=== PATIENT | female | born 1950 | race Caucasian/White ===

== ENCOUNTER 2017-01-14 17:36 | Emergency (ER) | payer MEDICARE, MEDICAID ==
[~2017-01-14] VITALS: Ht 167.6 cm; Wt 65.0 kg
[~2017-01-14 17:36] MED LIST: ASPI325T4 PO; ATOR80TA75 PO; CLON0.5T PO; DIVA500T2 PO; ESTR1TAB15 PO; GABA300C10 PO; HYDR25TA11 PO; LEVE500T53 PO; LISI-167 PO; LOPE2CAP PO; LORA-445 PO; ONDA4TAB10 PO; PARO40TA45 PO; TRAZ150T68 PO
[2017-01-14] MEDS ORDERED: HYDROmorphone 1 MG/ML, 1ML IVPush PRN (18:00)
[2017-01-14] MEDS ORDERED: ONDANSETRON 2MG/ML, 2ML IVPush ONE (18:00)
[2017-01-14] MEDS ORDERED: SODIUM CHLORIDE FLUSH 10ML SYR IVF ONE (18:00)
[2017-01-14] MEDS ORDERED: HYDROmorphone 1 MG/ML, 1ML ONE (18:20)
[2017-01-14] MEDS ORDERED: ONDANSETRON 2MG/ML, 2ML ONE (18:20)
[2017-01-14] MEDS ORDERED: PLEASE ENTER HEIGHT AND WEIGHT MC SCH (18:30)
[2017-01-14 18:45] LABS: ASPARTATE AMINO TRANSFERASE 10 U/L (15-37); BLOOD UREA NITROGEN 23 mg/dL (7-18)
[2017-01-14 19:49] VITALS: BP 123/65
[2017-01-14] MEDS ORDERED: OMNIPAQUE 350 MG/ML, 100ML BOTTLE ONE (23:55)
== END 2017-01-14 20:05 | disposition home or self-care (01) ==
LOC: ED 19:59
DX: K64.4 Residual hemorrhoidal skin tags (principal); R10.11 Right upper quadrant pain; G89.29 Other chronic pain; I10 Essential (primary) hypertension; K21.9 Gastro-esophageal reflux disease without esophagitis; Z86.73 Personal history of transient ischemic attack (TIA), and cerebral infarction without residual deficits; Z90.49 Acquired absence of other specified parts of digestive tract; Z90.710 Acquired absence of both cervix and uterus
CPT/HCPCS: 36415; 74177; 80053; 83605; 83690; 85025; 96374; 96375; 99285; J1170; J2405; Q9967

== ENCOUNTER 2017-01-17 12:44 | Emergency (ER) | payer MEDICARE, MEDICAID ==
[~2017-01-17] VITALS: Ht 165.1 cm; Wt 76.0 kg
[2017-01-17] MEDS ORDERED: CHOL500015 PO (13:25)
[2017-01-17] MEDS ORDERED: FLUT1DIS IH (13:25)
[2017-01-17] MEDS ORDERED: TRAM50TA2 PO (13:25)
[2017-01-17] MEDS ORDERED: PROG100C4 PO (13:25)
[2017-01-17] MEDS ORDERED: OXYB5TAB7 PO (13:25)
[2017-01-17] MEDS ORDERED: TRAZ150T68 PO (13:25)
[2017-01-17] MEDS ORDERED: SODIUM CHLORIDE 0.9% 1,000ML IVBOLUS ONE (13:30)
[2017-01-17] MEDS ORDERED: METOCLOPRAMIDE 5 MG/ML, 2ML IVPush ONE (13:30)
[2017-01-17] MEDS ORDERED: SODIUM CHLORIDE FLUSH 10ML SYR IVF ONE (13:30)
[2017-01-17 14:00] LABS: IS PT STATUS REG ER OR PRE ER? YES
[2017-01-17 14:06] LABS: ASPARTATE AMINO TRANSFERASE 11 U/L (15-37); BLOOD UREA NITROGEN 17 mg/dL (7-18)
[2017-01-17] MEDS ORDERED: KETOROLAC 30 MG/1 ML IVPush ONE (15:00)
[2017-01-17] MEDS ORDERED: KETOROLAC 30 MG/1 ML ONE (15:04)
[2017-01-17] MEDS ORDERED: METOCLOPRAMIDE 5 MG/ML, 2ML ONE (15:04)
[2017-01-17 15:14] VITALS: BP 96/55
== END 2017-01-17 18:11 | disposition home or self-care (01) ==
LOC: ED 13:25
DX: A08.4 Viral intestinal infection, unspecified (principal); R11.2 Nausea with vomiting, unspecified; R19.7 Diarrhea, unspecified; R07.89 Other chest pain; I10 Essential (primary) hypertension; K21.9 Gastro-esophageal reflux disease without esophagitis
CPT/HCPCS: 36415; 71010; 80053; 81003; 82542; 83690; 84484; 85025; 96361; 96374; 96375; 99285; J1885; J2765; J7030

== ENCOUNTER 2017-03-07 11:14 | Emergency (ER) | payer MEDICARE, MEDICAID ==
[~2017-03-07] VITALS: Ht 162.6 cm; Wt 64.0 kg
[~2017-03-07 11:14] MED LIST changes: +CHOL500015 PO; +FLUT1DIS IH; +OXYB5TAB7 PO; +PROG100C4 PO; +TRAM50TA2 PO
[2017-03-07 11:21] VITALS: BP 122/79
[2017-03-07] MEDS ORDERED: KETOROLAC 30 MG/1 ML ONE (12:42)
[2017-03-07] MEDS ORDERED: KETOROLAC 30 MG/1 ML IM ONE (13:00)
== END 2017-03-07 14:32 | disposition home or self-care (01) ==
LOC: ED 13:40
DX: L73.9 Follicular disorder, unspecified (principal); I10 Essential (primary) hypertension; K21.9 Gastro-esophageal reflux disease without esophagitis; Z86.73 Personal history of transient ischemic attack (TIA), and cerebral infarction without residual deficits; Z90.49 Acquired absence of other specified parts of digestive tract; Z90.710 Acquired absence of both cervix and uterus
CPT/HCPCS: 81001; 87086; 96372; 99284; J1885

== ENCOUNTER 2017-08-02 11:44 | Day surgery (SDC) | payer MEDICARE, MEDICAID ==
[~2017-08-02] VITALS: Ht 165.1 cm; Wt 73.4 kg
[2017-08-02 11:41] LABS: FECAL DELIVERY METHOD COLONOSCOPY
[~2017-08-02 11:44] MED LIST changes: +ASPI-650 PO; +ASPI325T17 PO; -ASPI325T4 PO; +ATOR-2 PO; -ATOR80TA75 PO; -PARO40TA45 PO; +PARO40TA61 PO; +PROG100C16 PO; -PROG100C4 PO; +TRAZ150T62 PO; -TRAZ150T68 PO; +VANC125C2 PO
[2017-08-02] MEDS ORDERED: PROPOFOL 50 ML ONE (12:25)
[2017-08-02 12:49] VITALS: BP 138/82
[2017-08-02] MEDS ORDERED: LACTATED RINGERS 1,000 ML IV SCH (12:49)
[2017-08-02] MEDS ORDERED: PROPOFOL 10 MG/ML, 20ML ONE (13:16)
[2017-08-02] MEDS ORDERED: MIDAZOLAM 1 MG/ML, 2ML IV PRN (13:30)
[2017-08-02] MEDS ORDERED: LORazepam 2 MG/ML, 1ML IVPush PRN (13:30)
[2017-08-02] MEDS ORDERED: ONDANSETRON 2MG/ML, 2ML IVPush PRN (13:30)
[2017-08-02] MEDS ORDERED: FENTANYL PF 100 MCG/2ML IV PRN (13:30)
[2017-08-02] MEDS ORDERED: DIAZEPAM 5 MG/ML, 2ML IVPush PRN (13:30)
[2017-08-02] MEDS ORDERED: LABETALOL 5MG/ML, 20ML IV PRN (13:30)
[2017-08-02] MEDS ORDERED: EPHEDRINE 50 MG/ML, 1ML IVPush PRN (13:30)
== END 2017-08-02 15:20 ==
LOC: OUT 11:44
PROVIDERS: ATTEND Internal Medicine Geriatric Medicine
DX: A04.71 Enterocolitis due to Clostridium difficile, recurrent (principal); J44.9 Chronic obstructive pulmonary disease, unspecified; I10 Essential (primary) hypertension; F41.9 Anxiety disorder, unspecified; Z88.6 Allergy status to analgesic agent
CPT/HCPCS: 44705; 93005; G0455; J2704; J7120

== ENCOUNTER → 2017-08-11 | Outpatient (CLI) | payer MEDICARE, MEDICAID | END | disposition home or self-care (01) | LOC: LAB 10:34 | PROVIDERS: ATTEND Internal Medicine Geriatric Medicine | DX: R19.7 Diarrhea, unspecified (principal) | CPT/HCPCS: 87324; 87493 ==

== ENCOUNTER 2018-02-03 16:08 | Emergency (ER) | payer MEDICARE, MEDICAID ==
[~2018-02-03] VITALS: Ht 162.6 cm; Wt 65.0 kg
[2018-02-03 16:25] VITALS: BP 143/90
== END 2018-02-03 17:59 | disposition left against medical advice (07) ==
LOC: ED 17:53
DX: R56.9 Unspecified convulsions (principal); R07.9 Chest pain, unspecified; Z53.21 Procedure and treatment not carried out due to patient leaving prior to being seen by health care provider
CPT/HCPCS: 93005

== ENCOUNTER → 2018-02-06 | Outpatient (CLI) | payer MEDICARE, MEDICAID ==
[2018-02-06 11:21] LABS: CLOSTRIDIUM DIFFICILE ANTIGEN NEGATIVE; CLOSTRIDIUM DIFFICILE TOXIN NEGATIVE (Negative)
== END | disposition home or self-care (01) ==
LOC: LAB 08:19
PROVIDERS: ATTEND Internal Medicine
DX: A04.72 Enterocolitis due to Clostridium difficile, not specified as recurrent (principal)
CPT/HCPCS: 87324

== ENCOUNTER 2018-03-06 19:12 | Emergency (ER) | payer MEDICARE, MEDICAID ==
[~2018-03-06] VITALS: Ht 165.1 cm; Wt 70.0 kg
[2018-03-06 19:16] VITALS: BP 134/77
[2018-03-06 20:12] LABS: BASOPHILS # (AUTO) 0.05 x10^3/uL (0-0.1); BASOPHILS % (AUTO) 1 % (0-1); EOSINOPHILS % (AUTO) 3 % (1-7); LYMPHOCYTES # (AUTO) 2.91 x10^3/uL (1-3.4); LYMPHOCYTES % (AUTO) 37 % (22-44); MD NO; MEAN CORPUSCULAR HEMOGLOBIN 32.3 pg (27.0-34.8); MEAN CORPUSCULAR HGB CONC 34.1 g/dL (32.4-35.8); MEAN CORPUSCULAR VOLUME 94.5 fL (80-100); MEAN PLATELET VOLUME 7.7 fL (7.4-10.4); MONOCYTES # (AUTO) 0.63 x10^3/uL (0.2-0.8); MONOCYTES % (AUTO) 8 % (2-9); NEUTROPHILS # (AUTO) 4.15 x10^3/uL (1.8-6.8); NEUTROPHILS % (AUTO) 52 % (42-75); PLATELET COUNT 305 x10^3/uL (130-400); RED BLOOD COUNT 4.11 x10^6/uL (3.82-5.3); RED CELL DISTRIBUTION WIDTH 14.2 % (9.6-15.2)
[2018-03-06 20:13] LABS: ANION GAP 4 mmol/L (5-15); CALCIUM 8.9 mg/dL (8.5-10.1); CHLORIDE 110 mmol/L (98-107); CREATININE 1.05 mg/dL (0.55-1.02)
== END 2018-03-06 20:18 | disposition left against medical advice (07) ==
LOC: ED 19:45
DX: G40.319 Generalized idiopathic epilepsy and epileptic syndromes, intractable, without status epilepticus (principal); K21.9 Gastro-esophageal reflux disease without esophagitis; I10 Essential (primary) hypertension; E11.9 Type 2 diabetes mellitus without complications; Z87.891 Personal history of nicotine dependence; Z86.73 Personal history of transient ischemic attack (TIA), and cerebral infarction without residual deficits
CPT/HCPCS: 36415; 80048; 85025; 93005; 99285

== ENCOUNTER → 2018-03-09 | Outpatient (CLI) | payer MEDICARE, MEDICAID ==
[2018-03-09 13:13] LABS: AMPHETAMINE SCREEN, URINE Negative (Negative); BARBITURATE SCREEN, URINE Negative (Negative); BENZODIAZEPINE SCREEN, URINE Positive (Negative); CANNABINOID SCREEN, URINE Negative (Negative); COCAINE SCREEN, URINE Positive (Negative); METHADONE SCREEN, URINE Negative (Negative); OPIATE SCREEN, URINE Positive (Negative)
== END | disposition home or self-care (01) ==
LOC: LAB 12:37
PROVIDERS: ATTEND Registered Nurse
DX: F11.20 Opioid dependence, uncomplicated (principal); G47.19 Other hypersomnia; R56.9 Unspecified convulsions
CPT/HCPCS: 36415; 80164; 80177; 80307

== ENCOUNTER 2018-03-29 16:58 | Emergency (ER) | payer MEDICARE, MEDICAID ==
[~2018-03-29] VITALS: Ht 165.1 cm; Wt 75.0 kg
[2018-03-29] MEDS ORDERED: LORazepam 2 MG/ML, 1ML IVPush ONE (17:43)
[2018-03-29] MEDS ORDERED: LORazepam 2 MG/ML, 1ML ONE (18:04)
[2018-03-29 18:06] LABS: ALANINE AMINOTRANSFERASE 22 U/L (12-78); ALBUMIN 3.5 g/dL (3.4-5.0); ANION GAP 6 mmol/L (5-15); CALCIUM 9.1 mg/dL (8.5-10.1); CHLORIDE 107 mmol/L (98-107)
[2018-03-29 18:09] LABS: ALKALINE PHOSPHATASE 75 U/L (45-117); BILIRUBIN,TOTAL 0.1 mg/dL (0.2-1.0); CREATININE 1.15 mg/dL (0.55-1.02); TOTAL PROTEIN 7.9 g/dL (6.4-8.2)
[2018-03-29] MEDS ORDERED: LORA-446 PO (18:34)
[2018-03-29 18:47] LABS: BASOPHILS # (AUTO) 0.05 x10^3/uL (0-0.1); BASOPHILS % (AUTO) 1 % (0-1); EOSINOPHILS # (AUTO) 0.24 x10^3/uL (0-0.4); EOSINOPHILS % (AUTO) 3 % (1-7); LYMPHOCYTES # (AUTO) 3.22 x10^3/uL (1-3.4); LYMPHOCYTES % (AUTO) 34 % (22-44); MD NO; MEAN CORPUSCULAR HEMOGLOBIN 32.6 pg (27.0-34.8); MEAN CORPUSCULAR HGB CONC 34.4 g/dL (32.4-35.8); MEAN PLATELET VOLUME 8.5 fL (7.4-10.4); MONOCYTES # (AUTO) 0.68 x10^3/uL (0.2-0.8); MONOCYTES % (AUTO) 7 % (2-9); NEUTROPHILS # (AUTO) 5.18 x10^3/uL (1.8-6.8); NEUTROPHILS % (AUTO) 55 % (42-75); PLATELET COUNT 282 x10^3/uL (130-400); RED BLOOD COUNT 4.05 x10^6/uL (3.82-5.3); RED CELL DISTRIBUTION WIDTH 14.1 % (9.6-15.2)
[2018-03-29 19:51] VITALS: BP 146/88
== END 2018-03-29 19:54 | disposition home or self-care (01) ==
LOC: ED 19:48
DX: R56.9 Unspecified convulsions (principal); E11.9 Type 2 diabetes mellitus without complications; I10 Essential (primary) hypertension; F41.1 Generalized anxiety disorder; F17.200 Nicotine dependence, unspecified, uncomplicated
CPT/HCPCS: 36415; 80053; 80164; 85025; 96374; 99284; J2060

== ENCOUNTER 2018-04-26 19:34 | Inpatient (IN) | payer MEDICARE, MEDICAID ==
[~2018-04-26] VITALS: Ht 165.1 cm; Wt 76.7 kg
[~2018-04-26 19:34] MED LIST changes: +LORA-446 PO
[2018-04-26] MEDS ORDERED: ASPIRIN 81 MG TABLET CHEW ONE (19:54)
[2018-04-26] MEDS ORDERED: NITROGLYCERIN SINGLE TAB 0.4 MG SL ONE (19:56)
[2018-04-26] MEDS: NITROGLYCERIN SINGLE TAB 0.4 MG SL PRN ×2 (19:57→20:36)
[2018-04-26] MEDS ORDERED: ASPIRIN 81 MG TABLET CHEW PO ONE (20:00)
[2018-04-26] MEDS ORDERED: SODIUM CHLORIDE FLUSH 10ML SYR IVF ONE (20:00)
[2018-04-26 20:31] LABS: BASOPHILS # (AUTO) 0.05 x10^3/uL (0-0.1); BASOPHILS % (AUTO) 1 % (0-1); EOSINOPHILS # (AUTO) 0.22 x10^3/uL (0-0.4); EOSINOPHILS % (AUTO) 3 % (1-7); LYMPHOCYTES # (AUTO) 3.51 x10^3/uL (1-3.4); LYMPHOCYTES % (AUTO) 42 % (22-44); MD NO; MEAN CORPUSCULAR HEMOGLOBIN 32.5 pg (27.0-34.8); MEAN CORPUSCULAR HGB CONC 34.2 g/dL (32.4-35.8); MEAN CORPUSCULAR VOLUME 94.9 fL (80-100); MONOCYTES # (AUTO) 0.73 x10^3/uL (0.2-0.8); MONOCYTES % (AUTO) 9 % (2-9); NEUTROPHILS # (AUTO) 3.88 x10^3/uL (1.8-6.8); NEUTROPHILS % (AUTO) 46 % (42-75); PLATELET COUNT 306 x10^3/uL (130-400)
[2018-04-26 20:40] LABS: INTERNATIONAL NORMALIZED RATIO 0.89 (0.93-1.1); PROTHROMBIN TIME 9.3 Seconds (9.6-11.5)
[2018-04-26 20:41] LABS: ALANINE AMINOTRANSFERASE 24 U/L (12-78); ALBUMIN 3.4 g/dL (3.4-5.0); ANION GAP 9 mmol/L (5-15); CHLORIDE 109 mmol/L (98-107); CREATININE 1.36 mg/dL (0.55-1.02)
[2018-04-26] MEDS ORDERED: NITR0.4T SL (20:41)
[2018-04-26 20:47] LABS: ALKALINE PHOSPHATASE 75 U/L (45-117); BILIRUBIN,TOTAL 0.2 mg/dL (0.2-1.0); TOTAL PROTEIN 7.5 g/dL (6.4-8.2); TROPONIN I < 0.015 ng/mL (0.000-0.045)
[2018-04-26] MEDS ORDERED: HYDROmorphone 2 MG/ML, 1ML ONE (21:56)
[2018-04-26] MEDS ORDERED: SODIUM CHLORIDE 0.9% 1,000ML IVBOLUS ONE (22:00)
[2018-04-26] MEDS ORDERED: HYDROmorphone 1 MG/ML, 1ML IV ONE (22:00)
[2018-04-26] MEDS ORDERED: TEMPLATE NON-FORMULARY MED. (Fluticasone/Salmeterol** (Advair 100-50 Diskus**) 1 PUFF) IH SCH (23:00)
[2018-04-26] MEDS ORDERED: BISACODYL 10 MG SUPP PR PRN (23:00)
[2018-04-26] MEDS ORDERED: POLYETHYLENE GLYCOL 17 GM PACKET PO PRN (23:00)
[2018-04-26] MEDS ORDERED: ONDANSETRON 2MG/ML, 2ML IVPush PRN (23:00)
[2018-04-26] MEDS ORDERED: ACETAMINOPHEN 325 MG TABLET PO PRN (23:00)
[2018-04-26] MEDS ORDERED: TEMPLATE NON-FORMULARY MED. (Gabapentin** 300 MG) PO SCH (23:00)
[2018-04-26] MEDS ORDERED: SODIUM CHLORIDE FLUSH 10ML SYR IVF PRN (23:00)
[2018-04-27] VITALS (11 sets, daily range): BP systolic 88–133; BP diastolic 54–87
[2018-04-27] MEDS: LORazepam 1MG TABLET PO SCH ×3 (00:25→22:20)
[2018-04-27] MEDS: TRAZODONE 150MG TABLET PO SCH ×2 (00:25→22:20)
[2018-04-27] MEDS: SODIUM CHLORIDE FLUSH 10ML SYR IVF SCH ×3 (00:25→22:20)
[2018-04-27] MEDS: DIVALPROEX 500 MG TABLET.DR PO SCH ×5 (00:25→22:20)
[2018-04-27] MEDS: LEVETIRACETAM 500 MG TABLET PO SCH ×3 (00:25→22:20)
[2018-04-27] MEDS: NICOTINE 7 MG/24 HR PATCH.TD24 TD SCH ×2 (00:25→22:24)
[2018-04-27] MEDS: HEPARIN 5,000 UNITS/ML, 1ML SQ SCH ×4 (00:26→22:20)
[2018-04-27 03:24] LABS: BASOPHILS # (AUTO) 0.02 x10^3/uL (0-0.1); BASOPHILS % (AUTO) 0 % (0-1); EOSINOPHILS # (AUTO) 0.19 x10^3/uL (0-0.4); EOSINOPHILS % (AUTO) 2 % (1-7); LYMPHOCYTES # (AUTO) 3.61 x10^3/uL (1-3.4); LYMPHOCYTES % (AUTO) 47 % (22-44); MD NO; MEAN CORPUSCULAR HEMOGLOBIN 31.6 pg (27.0-34.8); MEAN CORPUSCULAR HGB CONC 33.2 g/dL (32.4-35.8); MEAN CORPUSCULAR VOLUME 95.1 fL (80-100); MEAN PLATELET VOLUME 8.4 fL (7.4-10.4); MONOCYTES # (AUTO) 0.63 x10^3/uL (0.2-0.8); MONOCYTES % (AUTO) 8 % (2-9); NEUTROPHILS # (AUTO) 3.31 x10^3/uL (1.8-6.8); NEUTROPHILS % (AUTO) 43 % (42-75); PLATELET COUNT 254 x10^3/uL (130-400); RED BLOOD COUNT 3.78 x10^6/uL (3.82-5.3); RED CELL DISTRIBUTION WIDTH 14.4 % (9.6-15.2)
[2018-04-27 03:35] LABS: ALBUMIN 3.1 g/dL (3.4-5.0); ANION GAP 7 mmol/L (5-15); CALCIUM 8.4 mg/dL (8.5-10.1); CHLORIDE 113 mmol/L (98-107)
[2018-04-27 03:38] LABS: TROPONIN I < 0.015 ng/mL (0.000-0.045)
[2018-04-27 03:39] LABS: ALANINE AMINOTRANSFERASE 19 U/L (12-78); ALKALINE PHOSPHATASE 62 U/L (45-117); BILIRUBIN,TOTAL 0.2 mg/dL (0.2-1.0); CHOL/HDL RATIO 8.1; CHOLESTEROL, TOTAL 186 mg/dL (140-239); CREATININE 1.37 mg/dL (0.55-1.02); HDL CHOL % 12 % (28-40); HDL CHOLESTEROL (DIRECT) 23 mg/dL (40-60); TOTAL PROTEIN 6.5 g/dL (6.4-8.2); TRIGLYCERIDES 500 mg/dL (50-200)
[2018-04-27] MEDS: ASPIRIN 81 MG TABLET EC PO SCH (05:48)
[2018-04-27] MEDS: GABAPENTIN 300 MG CAPSULE PO SCH ×4 (05:49→22:19)
[2018-04-27] MEDS: PAROXETINE 20 MG TABLET PO SCH (07:50)
[2018-04-27] MEDS: SENNA/DOCUSATE TABLET PO SCH (07:50)
[2018-04-27] MEDS: CHOLECALCIFEROL 5,000u TAB PO SCH (07:50)
[2018-04-27] MEDS ORDERED: REGADENOSON 0.4 MG/5 ML SYRINGE ONE (08:30)
[2018-04-27 09:08] LABS: TROPONIN I < 0.015 ng/mL (0.000-0.045)
[2018-04-27] MEDS: LISINOPRIL 10 MG TABLET PO SCH (10:21)
[2018-04-27] MEDS ORDERED: SODIUM CHLORIDE 0.9%, 500ML IVBOLUS ONE (10:30)
[2018-04-27] MEDS: FLUTICASONE/VILANTEROL 100-25MCG/INH INH SCH (11:18)
[2018-04-27] MEDS: SODIUM CHLORIDE 0.9% 1,000 ML IV SCH ×2 (13:18→23:05)
[2018-04-27 16:07] LABS: MICROSCOPIC NOT IND
[2018-04-27 18:49] LABS: AMPHETAMINE SCREEN, URINE Negative (Negative); BARBITURATE SCREEN, URINE Negative (Negative); BENZODIAZEPINE SCREEN, URINE Negative (Negative); CANNABINOID SCREEN, URINE Negative (Negative); COCAINE SCREEN, URINE Positive (Negative); METHADONE SCREEN, URINE Negative (Negative); OPIATE SCREEN, URINE Positive (Negative)
[2018-04-28 00:14] VITALS: BP 107/71
[2018-04-28 02:45] VITALS: BP 129/74
[2018-04-28] MEDS: NITROGLYCERIN 0.4 MG BOTTLE (25 TABS) SL SCH ×2 (02:48→02:54)
[2018-04-28 02:53] VITALS: BP 110/71
[2018-04-28 03:00] VITALS: BP 96/60
[2018-04-28 03:23] VITALS: BP 106/69
[2018-04-28 06:01] LABS: CHLORIDE 111 mmol/L (98-107)
[2018-04-28 06:05] LABS: ALBUMIN 2.6 g/dL (3.4-5.0); ANION GAP 9 mmol/L (5-15); BASOPHILS # (AUTO) 0.03 x10^3/uL (0-0.1); BASOPHILS % (AUTO) 1 % (0-1); CALCIUM 8.2 mg/dL (8.5-10.1); CREATININE 0.97 mg/dL (0.55-1.02); EOSINOPHILS % (AUTO) 5 % (1-7); LYMPHOCYTES # (AUTO) 2.48 x10^3/uL (1-3.4); LYMPHOCYTES % (AUTO) 39 % (22-44); MD NO; MEAN CORPUSCULAR HEMOGLOBIN 32.6 pg (27.0-34.8); MEAN CORPUSCULAR HGB CONC 34.3 g/dL (32.4-35.8); MEAN CORPUSCULAR VOLUME 95.1 fL (80-100); MEAN PLATELET VOLUME 8.4 fL (7.4-10.4); MONOCYTES # (AUTO) 0.57 x10^3/uL (0.2-0.8); MONOCYTES % (AUTO) 9 % (2-9); NEUTROPHILS # (AUTO) 2.94 x10^3/uL (1.8-6.8); NEUTROPHILS % (AUTO) 47 % (42-75); PLATELET COUNT 214 x10^3/uL (130-400); RED BLOOD COUNT 3.26 x10^6/uL (3.82-5.3)
[2018-04-28] MEDS: ASPIRIN 81 MG TABLET EC PO SCH (06:09)
[2018-04-28] MEDS: GABAPENTIN 300 MG CAPSULE PO SCH ×2 (06:09→11:19)
[2018-04-28] MEDS: DIVALPROEX 500 MG TABLET.DR PO SCH ×2 (06:09→11:19)
[2018-04-28] MEDS: HEPARIN 5,000 UNITS/ML, 1ML SQ SCH (06:10)
[2018-04-28 09:03] VITALS: BP 157/92
[2018-04-28] MEDS: PAROXETINE 20 MG TABLET PO SCH (09:11)
[2018-04-28] MEDS: LORazepam 1MG TABLET PO SCH (09:12)
[2018-04-28] MEDS: CHOLECALCIFEROL 5,000u TAB PO SCH (09:12)
[2018-04-28] MEDS: LEVETIRACETAM 500 MG TABLET PO SCH (09:12)
[2018-04-28] MEDS: LISINOPRIL 10 MG TABLET PO SCH (09:13)
[2018-04-28] MEDS: SODIUM CHLORIDE FLUSH 10ML SYR IVF SCH (09:13)
[2018-04-28] MEDS: SODIUM CHLORIDE 0.9% 1,000 ML IV SCH (09:42)
[2018-04-28] MEDS: FLUTICASONE/VILANTEROL 100-25MCG/INH INH SCH (09:42)
[2018-04-28] MEDS ORDERED: ASPI-621 PO (10:10)
[2018-04-28] MEDS: SENNA/DOCUSATE TABLET PO SCH (11:19)
[2018-05-01] MEDS ORDERED: HYDR-2440 PO (21:21)
[2018-05-01] MEDS ORDERED: PARO40TA3 PO (21:21)
[2018-05-01] MEDS ORDERED: COLE500G2 PO (21:21)
== END 2018-04-28 13:20 | disposition home or self-care (01) | DRG 302 ==
LOC: ED 20:08 → EDIP 22:34 → 5SO 23:57 → DCLOUNGE 04-28 13:05
PROVIDERS: ADMIT Family Medicine; ATTEND Family Medicine
DX: I25.10 Atherosclerotic heart disease of native coronary artery without angina pectoris (principal); N17.0 Acute kidney failure with tubular necrosis; J98.11 Atelectasis; Z71.51 Drug abuse counseling and surveillance of drug abuser; I10 Essential (primary) hypertension; K21.9 Gastro-esophageal reflux disease without esophagitis; E11.9 Type 2 diabetes mellitus without complications; E78.00 Pure hypercholesterolemia, unspecified; E78.5 Hyperlipidemia, unspecified; F17.210 Nicotine dependence, cigarettes, uncomplicated; F41.1 Generalized anxiety disorder; G40.909 Epilepsy, unspecified, not intractable, without status epilepticus; Z80.41 Family history of malignant neoplasm of ovary; Z83.3 Family history of diabetes mellitus; Z86.73 Personal history of transient ischemic attack (TIA), and cerebral infarction without residual deficits; Z90.710 Acquired absence of both cervix and uterus; Z88.2 Allergy status to sulfonamides; Z88.8 Allergy status to other drugs, medicaments and biological substances
CPT/HCPCS: 36415; 71045; 74176; 78452; 80048; 80053; 80061; 80307; 81003; 82040; 82140; 82962; 83690; 83880; 84484; 85025; 85610; 85730; 93005; 93017; 96361; 96374; G0378; J1170; J1644; J2785; A9502; C9898; J7030; J7040

== ENCOUNTER → 2018-05-13 | Outpatient (CLI) | payer MEDICARE, MEDICAID ==
[~2018-05-13] MED LIST changes: +ASPI-621 PO; +COLE500G2 PO; +HYDR-2440 PO; +NITR0.4T SL; +PARO40TA3 PO
[2018-05-13 08:50] LABS: BASOPHILS # (AUTO) 0.04 x10^3/uL (0-0.1); BASOPHILS % (AUTO) 1 % (0-1); EOSINOPHILS # (AUTO) 0.35 x10^3/uL (0-0.4); EOSINOPHILS % (AUTO) 5 % (1-7); LYMPHOCYTES # (AUTO) 2.46 x10^3/uL (1-3.4); LYMPHOCYTES % (AUTO) 33 % (22-44); MD NO; MEAN CORPUSCULAR HEMOGLOBIN 31.9 pg (27.0-34.8); MEAN CORPUSCULAR HGB CONC 33.7 g/dL (32.4-35.8); MEAN CORPUSCULAR VOLUME 94.6 fL (80-100); MEAN PLATELET VOLUME 7.7 fL (7.4-10.4); MONOCYTES # (AUTO) 0.43 x10^3/uL (0.2-0.8); MONOCYTES % (AUTO) 6 % (2-9); NEUTROPHILS # (AUTO) 4.08 x10^3/uL (1.8-6.8); NEUTROPHILS % (AUTO) 55 % (42-75); PLATELET COUNT 299 x10^3/uL (130-400); RED BLOOD COUNT 4.54 x10^6/uL (3.82-5.3); RED CELL DISTRIBUTION WIDTH 14.9 % (9.6-15.2)
[2018-05-13 08:59] LABS: ALBUMIN 3.8 g/dL (3.4-5.0); ANION GAP 8 mmol/L (5-15); CALCIUM 9.1 mg/dL (8.5-10.1); CHLORIDE 107 mmol/L (98-107)
[2018-05-13 09:24] LABS: ALANINE AMINOTRANSFERASE 39 U/L (12-78); ALKALINE PHOSPHATASE 75 U/L (45-117); BILIRUBIN,TOTAL 0.3 mg/dL (0.2-1.0); CHOL/HDL RATIO 7.8; CHOLESTEROL, TOTAL 265 mg/dL (140-239); CREATININE 1.25 mg/dL (0.55-1.02); FOLATE LEVEL 16.8 ng/mL (3.1-17.5); HDL CHOL % 13 % (28-40); HDL CHOLESTEROL (DIRECT) 34 mg/dL (40-60); TOTAL PROTEIN 8.3 g/dL (6.4-8.2); TRIGLYCERIDES 513 mg/dL (50-200)
== END | disposition home or self-care (01) ==
LOC: LAB 08:25
PROVIDERS: ATTEND Registered Nurse
DX: Z13.1 Encounter for screening for diabetes mellitus (principal); R56.9 Unspecified convulsions; E78.5 Hyperlipidemia, unspecified; I11.0 Hypertensive heart disease with heart failure; I50.9 Heart failure, unspecified; J44.9 Chronic obstructive pulmonary disease, unspecified; F17.210 Nicotine dependence, cigarettes, uncomplicated; E55.9 Vitamin D deficiency, unspecified; Z88.2 Allergy status to sulfonamides; Z88.5 Allergy status to narcotic agent
CPT/HCPCS: 36415; 80053; 80061; 80164; 80177; 82306; 82607; 82746; 84443; 85025

== ENCOUNTER 2018-09-07 18:03 | Inpatient (IN) | payer MEDICARE, MEDICAID ==
[~2018-09-07] VITALS: Ht 165.1 cm; Wt 79.0 kg
[~2018-09-07 18:03] MED LIST changes: -ASPI-621 PO; +ASPI81TA45 PO
--- NOTE | 2018-09-07 18:44 | NUR ---
REPORT GIVEN TO LYNNE MORRISON.
[2018-09-07 19:07] LABS: BASOPHILS # (AUTO) 0.02 x10^3/uL (0-0.1); BASOPHILS % (AUTO) 0 % (0-1); EOSINOPHILS # (AUTO) 0.23 x10^3/uL (0-0.4); EOSINOPHILS % (AUTO) 3 % (1-7); LYMPHOCYTES # (AUTO) 2.59 x10^3/uL (1-3.4); LYMPHOCYTES % (AUTO) 35 % (22-44); MD NO; MEAN CORPUSCULAR HEMOGLOBIN 32.9 pg (27.0-34.8); MEAN CORPUSCULAR HGB CONC 34.1 g/dL (32.4-35.8); MEAN CORPUSCULAR VOLUME 96.7 fL (80-100); MEAN PLATELET VOLUME 7.7 fL (7.4-10.4); MONOCYTES # (AUTO) 0.72 x10^3/uL (0.2-0.8); MONOCYTES % (AUTO) 10 % (2-9); NEUTROPHILS # (AUTO) 3.97 x10^3/uL (1.8-6.8); NEUTROPHILS % (AUTO) 53 % (42-75); PLATELET COUNT 233 x10^3/uL (130-400); RED BLOOD COUNT 4.34 x10^6/uL (3.82-5.3); RED CELL DISTRIBUTION WIDTH 14.4 % (9.6-15.2)
[2018-09-07 19:15] LABS: INTERNATIONAL NORMALIZED RATIO 0.88 (0.93-1.1); PROTHROMBIN TIME 9.4 Seconds (9.6-11.5)
[2018-09-07 19:18] LABS: ALANINE AMINOTRANSFERASE 33 U/L (12-78); ANION GAP 3 mmol/L (5-15); CALCIUM 8.5 mg/dL (8.5-10.1); CHLORIDE 110 mmol/L (98-107)
[2018-09-07 19:23] LABS: TROPONIN I < 0.015 ng/mL (0.000-0.045)
--- NOTE | 2018-09-07 19:27 | NUR ---
POC DISCUSSED. PT AWARE UA IS NEEDED. PT STATES UNABLE TO PROVIDE SAMPLE AT THIS TIME. CALL LIGHT ON LAP. BED RAILS UPX2.
[2018-09-07 19:28] LABS: ALKALINE PHOSPHATASE 65 U/L (45-117); BILIRUBIN,TOTAL 0.5 mg/dL (0.2-1.0); CREATININE 1.01 mg/dL (0.55-1.02); TOTAL PROTEIN 7.1 g/dL (6.4-8.2)
[2018-09-07 20:08] LABS: MICROSCOPIC NOT IND
[2018-09-07 20:14] LABS: CULTURE INDICATED? NO
[2018-09-07] MEDS ORDERED: LOPE2TAB28 PO (20:38)
[2018-09-07] MEDS ORDERED: LEVO50TA5 PO (20:38)
[2018-09-07] MEDS ORDERED: ONDA4TAB7 PO (20:38)
[2018-09-07 21:00] VITALS: BP 103/70
--- NOTE | 2018-09-07 21:21 | NUR ---
PT ASSISTED ONTO BED PHILIP FOR COMPLAINT OF NEDING TO URINATE. PT THEN STATES SHE CANNOT GO. COMMODE OFFERED. PT DECLINED. BED PHILIP REMOVED. PT DENIES FURTHER NEEDS AT THIS TIME. PT AWARE AWAITING FOR ADMIT BED. BED RAILS UPX2. CALL LIGHT ON LAP.
[2018-09-07] MEDS ORDERED: DIVALPROEX 500 MG TABLET.DR PO SCH (21:30)
[2018-09-07] MEDS ORDERED: TEMPLATE NON-FORMULARY MED. (Fluticasone/Salmeterol** (Advair 100-50 Diskus**) 1 PUFF) IH SCH (21:30)
--- NOTE | 2018-09-07 21:42 | NUR ---
PT TO CT NOW
[2018-09-07] MEDS ORDERED: LABETALOL 5MG/ML, 20ML IVPush PRN (22:00)
[2018-09-07] MEDS ORDERED: ONDANSETRON 2MG/ML, 2ML IVPush PRN (22:00)
[2018-09-07] MEDS ORDERED: PROMETHAZINE 25 MG/ML, 1ML IM PRN (22:00)
[2018-09-07] MEDS ORDERED: DOCUSATE 100 MG CAPSULE PO PRN (22:00)
[2018-09-07] MEDS ORDERED: POLYETHYLENE GLYCOL 17 GM PACKET PO PRN (22:00)
[2018-09-07] MEDS ORDERED: HYDROmorphone 2 MG/ML, 1ML IVPush PRN (22:00)
[2018-09-07] MEDS ORDERED: ONDANSETRON ODT 4 MG PO PRN (22:00)
[2018-09-07] MEDS ORDERED: hydrALAzine 20 MG/ML, 1ML IVPush PRN (22:00)
[2018-09-07] MEDS ORDERED: ACETAMINOPHEN 325 MG TABLET PO PRN (22:00)
[2018-09-07] MEDS ORDERED: OMNIPAQUE 350 MG/ML, 100ML BOTTLE ONE (22:02)
[2018-09-07 22:09] LABS: FREE T4 (FREE THYROXINE) 1.18 ng/dL (0.76-1.46)
[2018-09-07] MEDS: ALBUTEROL SULFATE 2.5 MG/3 ML NPPB SCH (22:20)
[2018-09-07] MEDS: BUDESONIDE 0.5 MG/2 ML INHA NPPB SCH (22:20)
[2018-09-07 22:23] LABS: HEMOGLOBIN A1C 5.3 % (4.2-6.3)
[2018-09-07] MEDS: TRAZODONE 150MG TABLET PO SCH (23:43)
[2018-09-07] MEDS: HEPARIN 5,000 UNITS/ML, 1ML SQ SCH (23:43)
[2018-09-07] MEDS: GABAPENTIN 300 MG CAPSULE PO SCH (23:43)
[2018-09-07] MEDS: D5%-0.9% NACL 1,000 ML IV SCH (23:44)
[2018-09-07] MEDS: LEVETIRACETAM 500 MG TABLET PO SCH (23:44)
[2018-09-08 02:00] VITALS: BP 105/72
[2018-09-08] MEDS: ASPIRIN 81 MG TABLET EC PO SCH (05:40)
[2018-09-08] MEDS: GABAPENTIN 300 MG CAPSULE PO SCH ×4 (05:40→22:09)
[2018-09-08] MEDS: ALBUTEROL SULFATE 2.5 MG/3 ML NPPB SCH ×2 (07:27→11:28)
[2018-09-08] MEDS: BUDESONIDE 0.5 MG/2 ML INHA NPPB SCH ×2 (07:27→22:55)
[2018-09-08 07:46] VITALS: BP 100/67
[2018-09-08 07:56] LABS: BASOPHILS # (AUTO) 0.01 x10^3/uL (0-0.1); BASOPHILS % (AUTO) 0 % (0-1); EOSINOPHILS # (AUTO) 0.25 x10^3/uL (0-0.4); EOSINOPHILS % (AUTO) 5 % (1-7); LYMPHOCYTES # (AUTO) 1.97 x10^3/uL (1-3.4); LYMPHOCYTES % (AUTO) 37 % (22-44); MD NO; MEAN CORPUSCULAR HEMOGLOBIN 32.7 pg (27.0-34.8); MEAN CORPUSCULAR HGB CONC 33.7 g/dL (32.4-35.8); MEAN CORPUSCULAR VOLUME 97.2 fL (80-100); MEAN PLATELET VOLUME 7.5 fL (7.4-10.4); MONOCYTES # (AUTO) 0.53 x10^3/uL (0.2-0.8); MONOCYTES % (AUTO) 10 % (2-9); NEUTROPHILS % (AUTO) 48 % (42-75); PLATELET COUNT 193 x10^3/uL (130-400); RED BLOOD COUNT 3.86 x10^6/uL (3.82-5.3); RED CELL DISTRIBUTION WIDTH 14.5 % (9.6-15.2)
[2018-09-08 08:17] LABS: ALANINE AMINOTRANSFERASE 34 U/L (12-78); ALBUMIN 2.5 g/dL (3.4-5.0); ANION GAP 5 mmol/L (5-15); CALCIUM 7.8 mg/dL (8.5-10.1); CHLORIDE 114 mmol/L (98-107); CHOLESTEROL, TOTAL 164 mg/dL (140-239); CREATININE 0.94 mg/dL (0.55-1.02)
[2018-09-08 08:19] LABS: ALKALINE PHOSPHATASE 58 U/L (45-117); BILIRUBIN,TOTAL 0.2 mg/dL (0.2-1.0); CHOL/HDL RATIO 5.9; HDL CHOL % 17 % (28-40); HDL CHOLESTEROL (DIRECT) 28 mg/dL (40-60); LDL CHOLESTEROL,CALCULATED 70 mg/dL (54-169); LDL/HDL RATIO 2.5 (0.5-3.0); TOTAL PROTEIN 5.8 g/dL (6.4-8.2); TRIGLYCERIDES 328 mg/dL (50-200); VLDL CHOLESTEROL 66 mg/dL (0-25)
[2018-09-08] MEDS: CHOLECALCIFEROL 5,000u TAB PO SCH (08:44)
[2018-09-08] MEDS: HEPARIN 5,000 UNITS/ML, 1ML SQ SCH ×2 (08:44→15:32)
[2018-09-08] MEDS: LEVETIRACETAM 500 MG TABLET PO SCH ×2 (08:44→22:08)
[2018-09-08] MEDS: PAROXETINE 20 MG TABLET PO SCH (08:44)
[2018-09-08] MEDS: LISINOPRIL 10 MG TABLET PO SCH (08:45)
[2018-09-08] MEDS ORDERED: LEVOTHYROXINE 50 MCG TABLET PO SCH (09:00)
[2018-09-08] MEDS: FENOFIBRATE 54 MG TABLET PO SCH (12:06)
[2018-09-08 13:15] VITALS: BP 124/68
[2018-09-08] MEDS ORDERED: ALBUTEROL SULFATE 2.5 MG/3 ML NPPB PRN (14:00)
[2018-09-08] MEDS: OXYcodone IR 5MG TABLET PO PRN (15:31)
[2018-09-08] MEDS: D5%-0.9% NACL 1,000 ML IV SCH (15:31)
[2018-09-08 19:01] VITALS: BP 102/65
[2018-09-08] MEDS: TRAZODONE 150MG TABLET PO SCH (22:08)
[2018-09-08] MEDS: ALBUTEROL SULFATE 2.5MG/0.5ML NPPB SCH (22:55)
[2018-09-09] MEDS: HEPARIN 5,000 UNITS/ML, 1ML SQ SCH ×3 (01:06→18:02)
[2018-09-09] MEDS: OXYcodone IR 5MG TABLET PO PRN ×3 (01:10→18:01)
[2018-09-09 02:29] VITALS: BP 94/65
[2018-09-09 05:59] LABS: BASOPHILS # (AUTO) 0.02 x10^3/uL (0-0.1); BASOPHILS % (AUTO) 0 % (0-1); EOSINOPHILS % (AUTO) 2 % (1-7); LYMPHOCYTES # (AUTO) 1.82 x10^3/uL (1-3.4); LYMPHOCYTES % (AUTO) 38 % (22-44); MD NO; MEAN CORPUSCULAR HEMOGLOBIN 33.1 pg (27.0-34.8); MEAN CORPUSCULAR HGB CONC 34.2 g/dL (32.4-35.8); MEAN CORPUSCULAR VOLUME 96.8 fL (80-100); MEAN PLATELET VOLUME 7.9 fL (7.4-10.4); MONOCYTES # (AUTO) 0.56 x10^3/uL (0.2-0.8); MONOCYTES % (AUTO) 12 % (2-9); NEUTROPHILS # (AUTO) 2.25 x10^3/uL (1.8-6.8); NEUTROPHILS % (AUTO) 47 % (42-75); PLATELET COUNT 183 x10^3/uL (130-400); RED CELL DISTRIBUTION WIDTH 14.3 % (9.6-15.2)
[2018-09-09 06:07] LABS: ANION GAP 7 mmol/L (5-15); CALCIUM 8.2 mg/dL (8.5-10.1); CHLORIDE 112 mmol/L (98-107); CREATININE 0.84 mg/dL (0.55-1.02)
[2018-09-09] MEDS: GABAPENTIN 300 MG CAPSULE PO SCH ×4 (06:08→21:44)
[2018-09-09] MEDS: ASPIRIN 81 MG TABLET EC PO SCH (06:09)
[2018-09-09] MEDS: LEVOTHYROXINE 50 MCG TABLET PO SCH (06:09)
[2018-09-09 06:45] VITALS: BP 128/82
[2018-09-09] MEDS: LISINOPRIL 10 MG TABLET PO SCH (08:01)
[2018-09-09] MEDS: CHOLECALCIFEROL 5,000u TAB PO SCH (08:02)
[2018-09-09] MEDS: FENOFIBRATE 54 MG TABLET PO SCH (08:02)
[2018-09-09] MEDS: LEVETIRACETAM 500 MG TABLET PO SCH ×2 (08:02→21:43)
[2018-09-09] MEDS: PAROXETINE 20 MG TABLET PO SCH (08:02)
[2018-09-09] MEDS: BUDESONIDE 0.5 MG/2 ML INHA NPPB SCH ×2 (09:59→22:08)
[2018-09-09] MEDS: ALBUTEROL SULFATE 2.5MG/0.5ML NPPB SCH ×2 (09:59→22:08)
[2018-09-09 13:50] VITALS: BP 129/83
[2018-09-09] MEDS ORDERED: LORazepam 2 MG/ML, 1ML IVPush PRN (14:00)
[2018-09-09 18:56] VITALS: BP 127/76
[2018-09-09] MEDS: TRAZODONE 150MG TABLET PO SCH (21:43)
[2018-09-10] MEDS: HEPARIN 5,000 UNITS/ML, 1ML SQ SCH ×2 (00:14→08:00)
[2018-09-10 01:07] VITALS: BP_SYST 129; BP_SYST 170; BP_DIAS 76; BP_DIAS 81
[2018-09-10] MEDS: GABAPENTIN 300 MG CAPSULE PO SCH ×2 (05:59→09:56)
[2018-09-10] MEDS: ASPIRIN 81 MG TABLET EC PO SCH (05:59)
[2018-09-10] MEDS: LEVOTHYROXINE 50 MCG TABLET PO SCH (06:00)
[2018-09-10 07:29] VITALS: BP 127/78
[2018-09-10] MEDS: BUDESONIDE 0.5 MG/2 ML INHA NPPB SCH (09:00)
[2018-09-10] MEDS: ALBUTEROL SULFATE 2.5MG/0.5ML NPPB SCH (09:00)
[2018-09-10] MEDS: FENOFIBRATE 54 MG TABLET PO SCH (09:56)
[2018-09-10] MEDS: PAROXETINE 20 MG TABLET PO SCH (09:57)
[2018-09-10] MEDS: LISINOPRIL 10 MG TABLET PO SCH (09:57)
[2018-09-10] MEDS: CHOLECALCIFEROL 5,000u TAB PO SCH (09:57)
[2018-09-10] MEDS: LEVETIRACETAM 500 MG TABLET PO SCH (09:57)
[2018-09-10 13:42] VITALS: BP 157/69
== END 2018-09-10 15:14 | DRG 640 ==
LOC: ED 18:37 → EDIP 20:50 → 3NE 22:08
PROVIDERS: ADMIT Internal Medicine; ATTEND Internal Medicine
PROC: 0T9B70Z Drainage of Bladder with Drainage Device, Via Natural or Artificial Opening (ICD-10-PCS; principal; 2018-09-07)
DX: E86.0 Dehydration (principal); G92 Toxic encephalopathy; E78.1 Pure hyperglyceridemia; I70.0 Atherosclerosis of aorta; E03.9 Hypothyroidism, unspecified; R62.7 Adult failure to thrive; I10 Essential (primary) hypertension; E11.9 Type 2 diabetes mellitus without complications; E78.5 Hyperlipidemia, unspecified; W18.39XA Other fall on same level, initial encounter; F17.210 Nicotine dependence, cigarettes, uncomplicated; M54.30 Sciatica, unspecified side; K21.9 Gastro-esophageal reflux disease without esophagitis; G40.909 Epilepsy, unspecified, not intractable, without status epilepticus; Z86.73 Personal history of transient ischemic attack (TIA), and cerebral infarction without residual deficits; Z68.29 Body mass index [BMI] 29.0-29.9, adult; Y93.89 Activity, other specified; Y92.89 Other specified places as the place of occurrence of the external cause; Y99.8 Other external cause status; Z90.49 Acquired absence of other specified parts of digestive tract; Z90.710 Acquired absence of both cervix and uterus; Z83.3 Family history of diabetes mellitus; Z80.41 Family history of malignant neoplasm of ovary; Z82.69 Family history of other diseases of the musculoskeletal system and connective tissue; Z88.1 Allergy status to other antibiotic agents; Z88.5 Allergy status to narcotic agent; Z88.2 Allergy status to sulfonamides; Z88.8 Allergy status to other drugs, medicaments and biological substances
CPT/HCPCS: 36415; 71045; 72170; 74177; 80048; 80053; 80061; 80164; 80177; 81003; 83036; 83605; 83690; 83735; 84100; 84439; 84443; 84484; 85025; 85610; 85730; 93005; 94640; 99285; G0378; J1644; J2405; J7042; J7611; J7613; J7626; Q9967

== ENCOUNTER 2018-09-25 10:46 | Emergency (ER) | payer MEDICARE, MEDICAID ==
[~2018-09-25] VITALS: Ht 165.1 cm; Wt 68.0 kg
[~2018-09-25 10:46] MED LIST changes: +LEVO50TA5 PO; +LOPE2TAB28 PO; +ONDA4TAB7 PO
--- NOTE | 2018-09-25 11:44 | NUR ---
Assumed care of patient. moved to rm 14 from [facility] and placed on isolation as pt has history of cdiff.
[2018-09-25] MEDS ORDERED: SODIUM CHLORIDE FLUSH 10ML SYR IVF ONE (12:00)
[2018-09-25] MEDS ORDERED: LORA-446 PO (12:10)
--- NOTE | 2018-09-25 12:10 | NUR ---
MD mcknight completed and pt to xray
[2018-09-25] MEDS ORDERED: FAMO-79 PO (12:12)
[2018-09-25] MEDS ORDERED: PARO40TA61 PO (12:17)
--- NOTE | 2018-09-25 12:20 | NUR ---
upon return from xray lab at bedside and tech preparing for EKG
[2018-09-25 12:37] LABS: BASOPHILS # (AUTO) 0.02 x10^3/uL (0-0.1); BASOPHILS % (AUTO) 0 % (0-1); EOSINOPHILS # (AUTO) 0.18 x10^3/uL (0-0.4); EOSINOPHILS % (AUTO) 2 % (1-7); LYMPHOCYTES # (AUTO) 2.98 x10^3/uL (1-3.4); LYMPHOCYTES % (AUTO) 31 % (22-44); MD NO; MEAN CORPUSCULAR HEMOGLOBIN 33.5 pg (27.0-34.8); MEAN CORPUSCULAR HGB CONC 34.3 g/dL (32.4-35.8); MEAN CORPUSCULAR VOLUME 97.7 fL (80-100); MEAN PLATELET VOLUME 8.3 fL (7.4-10.4); MONOCYTES % (AUTO) 6 % (2-9); NEUTROPHILS # (AUTO) 5.99 x10^3/uL (1.8-6.8); NEUTROPHILS % (AUTO) 61 % (42-75); PLATELET COUNT 263 x10^3/uL (130-400); RED BLOOD COUNT 4.16 x10^6/uL (3.82-5.3); RED CELL DISTRIBUTION WIDTH 14.4 % (9.6-15.2)
[2018-09-25 12:46] LABS: ALANINE AMINOTRANSFERASE 18 U/L (12-78); ALBUMIN 3.5 g/dL (3.4-5.0); ANION GAP 7 mmol/L (5-15); CALCIUM 9.4 mg/dL (8.5-10.1); CHLORIDE 110 mmol/L (98-107); CREATININE 1.15 mg/dL (0.55-1.02)
[2018-09-25 12:48] LABS: ALKALINE PHOSPHATASE 63 U/L (45-117); BILIRUBIN,TOTAL 0.5 mg/dL (0.2-1.0); TOTAL PROTEIN 7.7 g/dL (6.4-8.2)
--- NOTE | 2018-09-25 12:54 | NUR ---
TASK RN: PT SITTING UP IN GURNEY, AWAKE/ALERT. NAD NOTED. PT AWARE OF NEED FOR UA AND STATES "I HAVEN'T BEEN GOING NORMALLY". THIS RN OFFERED STRAIGHT CATH OPTION FOR UA, PT STATES "YEAH, I JUST DON'T KNOW. CAN I TALK ABOUT IT WHEN MY NURSE GETS BACK?". ATTEMPT FOR UA HELD AT THIS TIME.
--- NOTE | 2018-09-25 13:32 | NUR ---
Pt pressed call light to let me know that she called her boyfriend to pick her up & she does not want to stay for any further testing. No reason for leaving, states she wants to go home. VSS, Dr. Fitzgerald brought to bedside to speak with pt about risks of leaving before testing/dx complete & pt verb. understanding. Boyfriend arrived shortly afterwards & pt assisted into wheelchair & wheeled out by sig other. AMA form signed.
[2018-09-25 13:35] VITALS: BP 136/75
== END 2018-09-25 13:36 | disposition left against medical advice (07) ==
LOC: ED 11:49
DX: R10.11 Right upper quadrant pain (principal); K59.00 Constipation, unspecified; R06.02 Shortness of breath; I10 Essential (primary) hypertension; E11.9 Type 2 diabetes mellitus without complications; E78.5 Hyperlipidemia, unspecified; E03.9 Hypothyroidism, unspecified; G40.909 Epilepsy, unspecified, not intractable, without status epilepticus; Z86.73 Personal history of transient ischemic attack (TIA), and cerebral infarction without residual deficits; Z90.49 Acquired absence of other specified parts of digestive tract; Z90.710 Acquired absence of both cervix and uterus
CPT/HCPCS: 36415; 74022; 80053; 83605; 83690; 85025; 93005; 99284

== ENCOUNTER 2020-03-09 15:53 | Emergency (ER) | payer OTHER ==
[~2020-03-09] VITALS: Ht 165.1 cm; Wt 78.0 kg
[~2020-03-09 15:53] MED LIST changes: +FAMO-79 PO; +HYDR-826 PO; -HYDR25TA11 PO; -NITR0.4T SL; +NITR0.4T41 SL; +OXYB5TAB10 PO; -OXYB5TAB7 PO; -VANC125C2 PO; +VANC125C3 PO
--- NOTE | 2020-03-09 16:38 | NUR ---
PATIENT HERE TODAY STATING SHE FELL ON A CONCRETE FLOOR AND HURT HER LEFT HIP. PATIENT A&OX4, NO OTHER COMPLAINTS.
--- NOTE | 2020-03-09 17:29 | NUR ---
ANNA WATTS AT BEDSIDE FOR EVAL
--- NOTE | 2020-03-09 17:47 | NUR ---
PATIENT TAKEN TO RADIOLOGY.
[2020-03-09] MEDS ORDERED: HYDROmorphone 1 MG/ML, 1ML INJ IM ONE (18:00)
[2020-03-09] MEDS ORDERED: HYDROmorphone 1 MG/ML, 1ML INJ ONE (18:03)
[2020-03-09 18:13] VITALS: BP 133/54
--- NOTE | 2020-03-09 18:13 | NUR ---
PATIENT BACK FROM IMAGING, C/O 05/31 LEFT HIP PAIN. IM DILAUDID ADMINISTERED. NO FURTHER NEEDS AT THIS TIME.
--- NOTE | 2020-03-09 18:41 | NUR ---
ANNA WATTS AT BEDSIDE TO DISCUSS POC. DISCHARGE INSTRUCTIONS REVIEWED.
== END 2020-03-09 18:59 | disposition home or self-care (01) ==
LOC: ED 17:44
DX: M54.42 Lumbago with sciatica, left side (principal); R20.8 Other disturbances of skin sensation; I10 Essential (primary) hypertension; E11.9 Type 2 diabetes mellitus without complications; K21.9 Gastro-esophageal reflux disease without esophagitis; G43.909 Migraine, unspecified, not intractable, without status migrainosus; E78.5 Hyperlipidemia, unspecified; Z90.49 Acquired absence of other specified parts of digestive tract; Z90.710 Acquired absence of both cervix and uterus
CPT/HCPCS: 72110; 73502; 96372; 99284; J1170

== ENCOUNTER 2020-04-17 15:49 | Emergency (ER) | payer OTHER ==
[~2020-04-17] VITALS: Ht 165.1 cm; Wt 68.0 kg
[2020-04-17] MEDS ORDERED: ONDANSETRON 2MG/ML, 2ML ONE (16:27)
[2020-04-17] MEDS ORDERED: HYDROmorphone 1 MG/ML, 1ML INJ ONE (16:27)
[2020-04-17] MEDS ORDERED: HYDROmorphone 2 MG/ML, 1ML IVPush PRN (16:30)
[2020-04-17] MEDS ORDERED: SODIUM CHLORIDE FLUSH 10ML SYR IVF ONE (16:30)
[2020-04-17] MEDS ORDERED: ONDANSETRON 2MG/ML, 2ML IVPush ONE (16:30)
--- NOTE | 2020-04-17 16:31 | NUR ---
THIS IS A 69 YO FEMALE COMING IN FOR LEFT HIP PAIN X4 MONTHS (PCP LEFT PRACTICE AND UNABLE TO FILL MEDICATIONS), GLF X2 "IN THE HALFWAY". USES WHEELCHAIR TO GET AROUND AND CURRENTLY LIVES IN APARTMENT ALONE. ALSO ADDS "I'VE HAD A COUGH, SHORTNESS OF BREATH, TIGHTNESS IN CHEST" X3 DAYS. DENIES CHEST PAIN AT THIS TIME. RESPIRATIONS ARE EVEN AND SLIGHTLY LABORED WITH MOVEMENT FROM PAIN IN LEFT HIP. LUNG SOUNDS CLEAR BUT SLIGHTLY DIMINISHED THROUGHOUT. ALL MONITORING IN PLACE. EKG DONE IN ROOM. PATIENT TAKEN TO XRAY
--- NOTE | 2020-04-17 17:00 | NUR ---
PATIENT MEDICATED PER EMAR
[2020-04-17 17:16] LABS: BASOPHILS # (AUTO) 0.05 x10^3/uL (0-0.1); BASOPHILS % (AUTO) 1 % (0-1); EOSINOPHILS # (AUTO) 0.45 x10^3/uL (0-0.4); EOSINOPHILS % (AUTO) 5 % (1-7); LYMPHOCYTES # (AUTO) 3.93 x10^3/uL (1-3.4); LYMPHOCYTES % (AUTO) 41 % (22-44); MD NO; MEAN CORPUSCULAR HEMOGLOBIN 31.7 pg (27.0-34.8); MEAN CORPUSCULAR HGB CONC 33.5 g/dL (32.4-35.8); MEAN CORPUSCULAR VOLUME 94.6 fL (80-100); MEAN PLATELET VOLUME 7.6 fL (7.4-10.4); MONOCYTES # (AUTO) 0.57 x10^3/uL (0.2-0.8); MONOCYTES % (AUTO) 6 % (2-9); NEUTROPHILS # (AUTO) 4.54 x10^3/uL (1.8-6.8); NEUTROPHILS % (AUTO) 48 % (42-75); PLATELET COUNT 340 x10^3/uL (130-400); RED BLOOD COUNT 4.46 x10^6/uL (3.82-5.3)
[2020-04-17 17:22] LABS: ALBUMIN 3.9 g/dL (3.4-5.0); ANION GAP 5 mmol/L (5-15); CALCIUM 9.3 mg/dL (8.5-10.1); CHLORIDE 110 mmol/L (98-107); CREATININE 1.09 mg/dL (0.55-1.02)
[2020-04-17 17:26] LABS: TROPONIN I < 0.015 ng/mL (0.000-0.045)
--- NOTE | 2020-04-17 18:11 | NUR ---
ULTRASOUND PIV PLACED BY THIS RN FOR CTA
--- NOTE | 2020-04-17 18:31 | NUR ---
PATIENT IN CT
[2020-04-17] MEDS ORDERED: OMNIPAQUE 350 MG/ML, 75ML BOTTLE ONE (18:44)
--- NOTE | 2020-04-17 18:51 | NUR ---
Pt bedside report From cherrie rn. This rn to assume care of pt. No immediate needs from pt. Awaiting ct results.
[2020-04-17] MEDS ORDERED: DIAZEPAM 5 MG TABLET ONE (19:10)
[2020-04-17 19:13] VITALS: BP 125/74
[2020-04-17] MEDS ORDERED: DIAZEPAM 5 MG TABLET PO ONE (19:30)
== END 2020-04-17 19:31 | disposition home or self-care (01) ==
LOC: ED 17:07
DX: J44.9 Chronic obstructive pulmonary disease, unspecified (principal); G89.29 Other chronic pain; M25.552 Pain in left hip; F13.239 Sedative, hypnotic or anxiolytic dependence with withdrawal, unspecified; R06.00 Dyspnea, unspecified; R07.89 Other chest pain; I10 Essential (primary) hypertension; E11.9 Type 2 diabetes mellitus without complications; I45.10 Unspecified right bundle-branch block; Z90.49 Acquired absence of other specified parts of digestive tract; Z86.73 Personal history of transient ischemic attack (TIA), and cerebral infarction without residual deficits; Z90.710 Acquired absence of both cervix and uterus
CPT/HCPCS: 36415; 71045; 71275; 73502; 80048; 82040; 84484; 85025; 85379; 93005; 96374; 96375; 99285; J1170; J2405; Q9967

== ENCOUNTER 2020-05-06 09:18 | Emergency (ER) | payer OTHER ==
[~2020-05-06] VITALS: Ht 165.1 cm; Wt 68.0 kg
[2020-05-06 09:22] VITALS: BP 155/82
[2020-05-06] MEDS ORDERED: OXYcodone/APAP 5/325MG TABLET PO ONE (10:00)
[2020-05-06] MEDS ORDERED: ONDANSETRON ODT 4 MG PO ONE (10:00)
--- NOTE | 2020-05-06 10:03 | NUR ---
RN ENTERED PT ROOM AND PTS IN WHEELCHAIR AND STATES "I'M LEAVING, YOU GUYS CAN'T DO ANYTHING FOR ME", RN ASKED PT WHAT SHE WOULD LIKE AND SHE STATED "SOMETHING FOR MY PAIN IN MY HIP", PER ROBERTO GOYAL PT DECLINING WORK UP AND REQUESTING REFILLS/PAIN MEDICINE ONLY. RN RETURNED TO ROOM AND PT USING BATHROOM. PT LEFT AMA. HOUSEKEEPING NOTIFIED OF PT USING PUBLIC BATHROOM WITH KNOWN CDIFF + AND WILL CLEAN ACCORDINGLY.
== END 2020-05-06 10:06 | disposition left against medical advice (07) ==
LOC: ED 10:04
DX: R19.7 Diarrhea, unspecified (principal); M25.552 Pain in left hip; I45.10 Unspecified right bundle-branch block; G89.29 Other chronic pain; E11.9 Type 2 diabetes mellitus without complications; J44.9 Chronic obstructive pulmonary disease, unspecified; K21.9 Gastro-esophageal reflux disease without esophagitis; E03.9 Hypothyroidism, unspecified; I10 Essential (primary) hypertension; Z86.73 Personal history of transient ischemic attack (TIA), and cerebral infarction without residual deficits; Z90.49 Acquired absence of other specified parts of digestive tract; Z90.710 Acquired absence of both cervix and uterus; Z88.2 Allergy status to sulfonamides; Z88.6 Allergy status to analgesic agent; Z88.8 Allergy status to other drugs, medicaments and biological substances
CPT/HCPCS: 93005; 99283

== ENCOUNTER 2020-05-09 14:51 | Emergency (ER) | payer OTHER ==
[~2020-05-09] VITALS: Ht 165.1 cm; Wt 66.0 kg
[2020-05-09 14:57] VITALS: BP 118/97
--- NOTE | 2020-05-09 15:16 | NUR ---
helped to bathroom, back to bed. changed to gown. at [facility] for same, got toradol and valium. hip pain since fall in november. new primary who won't prescribe her pain meds. as
[2020-05-09] MEDS ORDERED: BUPIVACAINE 0.25% ONE (15:40)
[2020-05-09] MEDS ORDERED: LIDOCAINE 1%-EPI 1:100K, 20ML ONE (15:40)
== END 2020-05-09 16:16 | disposition home or self-care (01) ==
LOC: ED 15:17
DX: M70.72 Other bursitis of hip, left hip (principal); G89.29 Other chronic pain; M25.552 Pain in left hip; Y93.89 Activity, other specified
CPT/HCPCS: 64450; 99284

== ENCOUNTER 2020-06-08 09:53 | Emergency (ER) | payer OTHER ==
[~2020-06-08] VITALS: Ht 160 cm; Wt 78.0 kg
[2020-06-08] MEDS ORDERED: ALBUTEROL/IPRATROPIUM 2.5MG/0.5MG, 3 ML NPPB ONE (10:30)
[2020-06-08] MEDS ORDERED: ALBUTEROL/IPRATROPIUM 2.5MG/0.5MG, 3 ML ONE (10:38)
[2020-06-08 10:40] LABS: BASOPHILS % (AUTO) 1 % (0-1); EOSINOPHILS % (AUTO) 2 % (1-7); LYMPHOCYTES % (AUTO) 24 % (22-44); MEAN CORPUSCULAR HEMOGLOBIN 31.4 pg (27.0-34.8); MEAN CORPUSCULAR HGB CONC 33.5 g/dL (32.4-35.8); MEAN PLATELET VOLUME 7.5 fL (7.4-10.4); MONOCYTES % (AUTO) 6 % (2-9); NEUTROPHILS % (AUTO) 68 % (42-75); PLATELET COUNT 339 x10^3/uL (130-400); RED BLOOD COUNT 4.61 x10^6/uL (3.82-5.3); RED CELL DISTRIBUTION WIDTH 14.4 % (9.6-15.2)
[2020-06-08 10:41] LABS: MD NO
[2020-06-08 10:53] LABS: ALANINE AMINOTRANSFERASE 18 U/L (12-78); ALBUMIN 3.7 g/dL (3.4-5.0); ANION GAP 4 mmol/L (5-15); CALCIUM 9.1 mg/dL (8.5-10.1); CHLORIDE 112 mmol/L (98-107); CREATININE 1.06 mg/dL (0.55-1.02)
[2020-06-08 10:55] LABS: ALKALINE PHOSPHATASE 75 U/L (45-117); BILIRUBIN,TOTAL 0.4 mg/dL (0.2-1.0); TOTAL PROTEIN 8.1 g/dL (6.4-8.2)
--- NOTE | 2020-06-08 11:31 | NUR ---
IN ROOM TO ANSWER CALL LIGHT. PT REQUESTING BLANKET HSHE IS COLD. PT EDUCATED SHE HAS MULTIPLE BLANKET ON HER LAP AND JUST NEEDED TO PULL THEM UP,. PT REQUESTS THIS RN TO PULL THEM UP. PT ASKED IF SHE LIVES ALONE AT HOME FOR WHICH SHE ANSWERS YES. PT ASKED HOW WELL SHE FEELS SHE TAKES CARE OF HERSELF AT HOME. PT RESPONDS NOT VERY GOOD. PT ASKED IF ANYONE HELPS AND RESPOND THAT SHE TRIES TO GET NEIGHBORS TO HELP IF SHE CAN. PT STATES SHE WOULD LIKE TO SPEAK WITH A HOME APPLIANCE TECH. MADE AWARE.
[2020-06-08 11:34] VITALS: BP 148/86
[2020-06-08] MEDS ORDERED: DIAZEPAM 5 MG TABLET PO/NG ONE (12:00)
[2020-06-08] MEDS ORDERED: OXYcodone/APAP 10/325MG TABLET HOMEMEDPO ONE (12:00)
[2020-06-08] MEDS ORDERED: LEVETIRACETAM 500 MG TABLET PO ONE (12:00)
== END 2020-06-08 13:02 | disposition home or self-care (01) ==
LOC: ED 11:38
DX: J44.1 Chronic obstructive pulmonary disease with (acute) exacerbation (principal); R06.02 Shortness of breath; Z20.828 Contact with and (suspected) exposure to other viral communicable diseases; I45.10 Unspecified right bundle-branch block; F17.210 Nicotine dependence, cigarettes, uncomplicated; I10 Essential (primary) hypertension; E11.9 Type 2 diabetes mellitus without complications; G40.909 Epilepsy, unspecified, not intractable, without status epilepticus; E03.9 Hypothyroidism, unspecified; E78.5 Hyperlipidemia, unspecified; K21.9 Gastro-esophageal reflux disease without esophagitis; Z86.73 Personal history of transient ischemic attack (TIA), and cerebral infarction without residual deficits; Z94.9 Transplanted organ and tissue status, unspecified; Z90.710 Acquired absence of both cervix and uterus
CPT/HCPCS: 36415; 71045; 80053; 83605; 84145; 85025; 87040; 87635; 94640; 99284; 99406

== ENCOUNTER 2020-06-08 09:55 | Emergency (ER) | payer OTHER | END 2020-06-08 10:02 | LOC: ED 09:56 | DX: R68.89 Other general symptoms and signs (principal); Z53.21 Procedure and treatment not carried out due to patient leaving prior to being seen by health care provider | CPT/HCPCS: 93005 ==

== ENCOUNTER 2020-07-14 13:11 | Emergency (ER) | payer OTHER ==
[~2020-07-14] VITALS: Ht 160 cm; Wt 68.6 kg
[~2020-07-14 13:11] MED LIST changes: -HYDR-2440 PO; +HYDR-3569 PO
[2020-07-14 13:19] VITALS: BP 136/73
--- NOTE | 2020-07-14 13:24 | NUR ---
HAZEL FAY, PT FROM [facility] WITH TREMULOUS ACTIVITY SENT HERE FOR MED KINSEY, PT WITH HX OF OPIATE ABUSE. HAS BEEN OUT OF MEDICATION FOR 4 DAYS PT ON ARRIVAL HOLDS ARMS EXTENDED AND STATES, "IM HAVING A SEIZURE, LOOK" PT ABLE TO HOLD BODY STILL WHILE GETTING INTO GOWN, THEN AGAIN BEGINS BECOMING TREMULOUS. PT ANXIOUS AND RESTLESS. BED RAILS UP. PT TO CONT PULSE OX, BP MONITOR.
[2020-07-14] MEDS ORDERED: KETOROLAC 30 MG/1 ML ONE (13:58)
[2020-07-14] MEDS ORDERED: ACETAMINOPHEN 325 MG TABLET ONE (13:58)
[2020-07-14] MEDS ORDERED: KETOROLAC 30 MG/1 ML IM ONE (14:00)
[2020-07-14] MEDS ORDERED: KETOROLAC 30 MG/1 ML IVPush ONE (14:00)
[2020-07-14] MEDS ORDERED: ACETAMINOPHEN 325 MG TABLET PO ONE (14:00)
[2020-07-14 14:15] LABS: BASOPHILS % (AUTO) 1 % (0-1); EOSINOPHILS % (AUTO) 4 % (1-7); LYMPHOCYTES % (AUTO) 35 % (22-44); MEAN CORPUSCULAR HEMOGLOBIN 31.9 pg (27.0-34.8); MEAN CORPUSCULAR HGB CONC 32.9 g/dL (32.4-35.8); MEAN PLATELET VOLUME 7.9 fL (7.4-10.4); MONOCYTES % (AUTO) 5 % (2-9); NEUTROPHILS % (AUTO) 56 % (42-75); PLATELET COUNT 326 x10^3/uL (130-400); RED BLOOD COUNT 3.99 x10^6/uL (3.82-5.3); RED CELL DISTRIBUTION WIDTH 14.8 % (9.6-15.2)
[2020-07-14 14:23] LABS: ALANINE AMINOTRANSFERASE 13 U/L (12-78); ALBUMIN 3.6 g/dL (3.4-5.0); ANION GAP 7 mmol/L (5-15); CALCIUM 9.1 mg/dL (8.5-10.1); CHLORIDE 112 mmol/L (98-107); CREATININE 1.14 mg/dL (0.55-1.02)
[2020-07-14 14:25] LABS: ALKALINE PHOSPHATASE 162 U/L (45-117); BILIRUBIN,TOTAL 0.2 mg/dL (0.2-1.0); TOTAL PROTEIN 7.5 g/dL (6.4-8.2)
--- NOTE | 2020-07-14 14:47 | NUR ---
PT BACK FROM CT
[2020-07-14 14:58] LABS: MD NO
--- NOTE | 2020-07-14 14:59 | NUR ---
ALL RESULTS BACK. PT UP FOR RECHECK
--- NOTE | 2020-07-14 15:50 | NUR ---
PT REMOVED ALL VITAL MONITORS, GOT DRESSED AND LEFT ED. PT THEN RETURNED SHORT TIME LATER, STATED SHE LEFT HER PURSE IN THE ROOM. THIS RN RETREIVED PT PURSE, PT ALSO LEFT BRA IN ROOM, BRA PLACED IN OPEN POCKET OF PURSE. THIS RN WALKED PT OVER TO DC DESK SHE WAS NOT FULLY REGISTERED. IV REMOVED. PT ABLE TO AMBULATE STEADILY WTIH WALKER. PT UPSET THAT HER PAIN MEDS WERE NOT REFILLED. ENCOURAGED PT TO FOLLOW UP WITH PCP RECOMMENDED BY THE ERP ON HER DC PAPERWORK.
== END 2020-07-14 16:34 | disposition home or self-care (01) ==
LOC: ED 16:00
DX: G89.4 Chronic pain syndrome (principal); I45.10 Unspecified right bundle-branch block; M54.5 Low back pain; R56.9 Unspecified convulsions; I10 Essential (primary) hypertension; E11.9 Type 2 diabetes mellitus without complications; J44.9 Chronic obstructive pulmonary disease, unspecified; E03.9 Hypothyroidism, unspecified; E78.5 Hyperlipidemia, unspecified; F17.200 Nicotine dependence, unspecified, uncomplicated; Z88.2 Allergy status to sulfonamides; Z88.9 Allergy status to unspecified drugs, medicaments and biological substances; Z90.49 Acquired absence of other specified parts of digestive tract; Z86.73 Personal history of transient ischemic attack (TIA), and cerebral infarction without residual deficits; Z90.710 Acquired absence of both cervix and uterus; Z79.899 Other long term (current) drug therapy
CPT/HCPCS: 36415; 70450; 80053; 85025; 93005; 96374; 99285; J1885

== ENCOUNTER 2020-09-06 18:03 | Emergency (ER) | payer OTHER ==
[~2020-09-06] VITALS: Ht 162.6 cm; Wt 68.0 kg
--- NOTE | 2020-09-06 18:30 | NUR ---
COVID SWAB SPECIMEN OBTAINED. LAB AT BS. PT C/O COUGH, SORE THROAT, FEVER X 1 WK. REPORTS DECREASED SENSE OF TASTE. C/O PAIN TO LT HIP - STATES SHE NEEDS A HIP REPLACEMENT. C/O PAIN TO RT WRIST - HARD PLASTIC THUMB SPLINT PRESENT - STATES SHE FELL 1 WEEK AGO. STATES SHE DOESN'T WALK, BUT USES AN ELECTRIC WC. STATES CP IS "EASING UP". TOOK OXYCODONE EARLIER TODAY, TYLENOL AT 1730, VALIUM AND NTG INSURANCE APPLICATION INVESTIGATOR.
[2020-09-06 18:53] LABS: BASOPHILS % (AUTO) 1 % (0-1); EOSINOPHILS % (AUTO) 3 % (1-7); LYMPHOCYTES % (AUTO) 41 % (22-44); MEAN CORPUSCULAR HEMOGLOBIN 32.3 pg (27.0-34.8); MEAN PLATELET VOLUME 8.4 fL (7.4-10.4); MONOCYTES % (AUTO) 7 % (2-9); NEUTROPHILS % (AUTO) 49 % (42-75); PLATELET COUNT 327 x10^3/uL (130-400); RED BLOOD COUNT 4.32 x10^6/uL (3.82-5.3)
[2020-09-06 18:54] LABS: MD NO
[2020-09-06 18:59] LABS: ALANINE AMINOTRANSFERASE 17 U/L (12-78); ALBUMIN 3.5 g/dL (3.4-5.0); ANION GAP 8 mmol/L (5-15); CALCIUM 9.4 mg/dL (8.5-10.1); CHLORIDE 107 mmol/L (98-107)
[2020-09-06] MEDS ORDERED: GABA300C PO (19:03)
[2020-09-06] MEDS ORDERED: DIVA-59 PO (19:03)
[2020-09-06] MEDS ORDERED: PARO20TA4 PO (19:03)
[2020-09-06] MEDS ORDERED: LEVE500T8 PO (19:03)
[2020-09-06] MEDS ORDERED: COLE1TAB2 PO (19:03)
[2020-09-06] MEDS ORDERED: DIAZ2TAB3 PO (19:03)
[2020-09-06] MEDS ORDERED: ESTR1TAB15 PO (19:03)
[2020-09-06] MEDS ORDERED: OXYC15TA3 PO (19:03)
[2020-09-06] MEDS ORDERED: VANC125C3 PO (19:03)
[2020-09-06 19:04] LABS: ALKALINE PHOSPHATASE 70 U/L (45-117); BILIRUBIN,TOTAL 0.2 mg/dL (0.2-1.0); TOTAL PROTEIN 7.5 g/dL (6.4-8.2); TROPONIN I < 0.015 ng/mL (0.000-0.045)
[2020-09-06] MEDS ORDERED: ALBUTEROL/IPRATROPIUM 2.5MG/0.5MG, 3 ML ONE (19:42)
--- NOTE | 2020-09-06 19:45 | NUR ---
PT SHAKING, SIDE RAILS UP X2, CALL LIGHT IN HAND, CARDIAC MONITORING CONTINUING. OPENED HER EYES & LOOKED AT THIS RN WHEN NAME WAS CALLED. DR ISSA CONSULTED; VO ATIVAN 1 MG PO.
[2020-09-06] MEDS ORDERED: LORazepam 1MG TABLET ONE (19:49)
--- NOTE | 2020-09-06 19:57 | NUR ---
ATIVAN GIVEN; PT ABLE TO SWALLOW W/OUT COUGHING. NEB TX INITIATED; PT ABLE TO FOLLOW INSTRUCTIONS
[2020-09-06] MEDS ORDERED: LORazepam 1MG TABLET PO ONE (20:00)
[2020-09-06] MEDS ORDERED: ALBUTEROL/IPRATROPIUM 2.5MG/0.5MG, 3 ML NPPB ONE (20:00)
[2020-09-06 20:30] VITALS: BP 121/73
--- NOTE | 2020-09-06 20:38 | NUR ---
DC INSTRUCTIONS DISCUSSED W/ PT; UNDERSTANDING VERBALIZED. PT CALLED FRIEND FOR TRANSPORT HOME.
--- NOTE | 2020-09-06 20:45 | NUR ---
PT ABLE TO OPEN ROOM DOOR AND AMBULATE TO ; GAIT SLOW AND SHUFFLING.
--- NOTE | 2020-09-06 20:47 | NUR ---
TAKEN TO WAITING VEHICLE PER WC.
== END 2020-09-06 20:50 | disposition home or self-care (01) ==
LOC: ED 20:44
DX: R06.00 Dyspnea, unspecified (principal); R07.89 Other chest pain; Z20.822 Contact with and (suspected) exposure to COVID-19; J44.1 Chronic obstructive pulmonary disease with (acute) exacerbation
CPT/HCPCS: 36415; 71045; 80053; 83880; 84484; 85025; 87635; 93005; 94640; 99285

== ENCOUNTER 2021-01-01 17:55 | Emergency (ER) | payer OTHER ==
[~2021-01-01] VITALS: Ht 162.6 cm; Wt 68.2 kg
[~2021-01-01 17:55] MED LIST changes: +ASPI-1026 PO; -ASPI-650 PO; +COLE1TAB2 PO; +DIAZ2TAB3 PO; +DIVA-59 PO; +GABA300C PO; +LEVE500T8 PO; +NICO-486 TD; +OXYC15TA3 PO; +OXYC5TAB98 PO; +PARO20TA4 PO
--- NOTE | 2021-01-01 18:20 | NUR ---
PT PRESENTS TO ED WITH C/O HAVING SEIZURES. PT STATES THEY HAD SECOND COVID SHOT TODAY AROUND 1300 AND A FEW MINUTES AFTER THEY STARTED SEIZING. ALSO C/O SEVERE HEADACHE & NAUSEA, MILD SOB. PT A&O, RESPS EVEN AND UNLABORED, ALL MONITORS ATTACHED, NSR, VSS. ERMD AT BEDSIDE FOR EVAL.
[2021-01-01] MEDS ORDERED: LORazepam 0.5MG TABLET ONE (18:44)
--- NOTE | 2021-01-01 18:46 | NUR ---
PT MEDICATED PER ORDER, TOLERATED WELL, ABLE TO SWALLOW WATER AND PILL. PT A&O, RESPS EVEN AND UNLABORED, VSS, NADN, ALL MONITORS ATTACHED, NSR.
[2021-01-01 18:50] LABS: BASOPHILS % (AUTO) 1 % (0-1); EOSINOPHILS % (AUTO) 4 % (1-7); LYMPHOCYTES % (AUTO) 46 % (22-44); MEAN CORPUSCULAR HEMOGLOBIN 31.6 pg (27.0-34.8); MEAN CORPUSCULAR HGB CONC 33.4 g/dL (32.4-35.8); MEAN PLATELET VOLUME 8.6 fL (7.4-10.4); MONOCYTES % (AUTO) 9 % (2-9); NEUTROPHILS % (AUTO) 41 % (42-75); PLATELET COUNT 295 x10^3/uL (130-400); RED BLOOD COUNT 4.44 x10^6/uL (3.82-5.3); RED CELL DISTRIBUTION WIDTH 13.8 % (9.6-15.2)
[2021-01-01 18:54] LABS: ALBUMIN 3.7 g/dL (3.4-5.0); ANION GAP 4 mmol/L (5-15); CALCIUM 8.7 mg/dL (8.5-10.1); CHLORIDE 111 mmol/L (98-107)
[2021-01-01 18:57] LABS: ALANINE AMINOTRANSFERASE 14 U/L (12-78); ALKALINE PHOSPHATASE 59 U/L (45-117); BILIRUBIN,TOTAL 0.2 mg/dL (0.2-1.0); CREATININE 1.13 mg/dL (0.55-1.02); TOTAL PROTEIN 7.2 g/dL (6.4-8.2)
[2021-01-01] MEDS ORDERED: LORazepam 0.5MG TABLET PO ONE (19:00)
[2021-01-01 19:09] VITALS: BP 127/81
--- NOTE | 2021-01-01 19:09 | NUR ---
Report from Obi MORRISON. POSTIONED TO COMFORT. VSS. EDGAR.
[2021-01-01 19:32] LABS: MD SCAN
--- NOTE | 2021-01-01 19:47 | NUR ---
PT LEFT WITHOUT D/C PAPERWORK AFTER DR. VICTOR STATED SHE WAS GOING HOME. PT LEFT WITH ALL HER BELONGINGS VIA HER WHEELCHAIR.
== END 2021-01-01 19:49 | disposition home or self-care (01) ==
LOC: ED 18:43
DX: F41.1 Generalized anxiety disorder (principal); R06.4 Hyperventilation; I10 Essential (primary) hypertension; E11.9 Type 2 diabetes mellitus without complications; E78.5 Hyperlipidemia, unspecified; J44.9 Chronic obstructive pulmonary disease, unspecified; G40.909 Epilepsy, unspecified, not intractable, without status epilepticus; Z90.49 Acquired absence of other specified parts of digestive tract; Z86.73 Personal history of transient ischemic attack (TIA), and cerebral infarction without residual deficits
CPT/HCPCS: 36415; 80053; 80320; 85025; 93005; 99284; G0480

== ENCOUNTER 2021-01-14 11:50 | Emergency (ER) | payer OTHER ==
[~2021-01-14] VITALS: Ht 167.6 cm; Wt 150.0 kg
--- NOTE | 2021-01-14 11:55 | NUR ---
PT HAZELA FROM HOME FOR C/O SZ. PT STATES SHE RAN OUT OF MEDICATIONS 1 DAY AGO. A BYSTANDER SAW PT SZ & FELL OUT OF HER CHAIR & COMPLAINED OF MEDIAL/LATERAL NECK PAIN. C-COLLAR PLACED MELT ROOM OPERATOR. PER EMS PT HAS HAD CONVULSIONS MELT ROOM OPERATOR. PT ARRIVED AX0X4, NO POSTICTAL NOTED. UNABLE TO PLACE IN GOWN ON ARRIVAL, D/T C-COLLAR PLACEMENT.PT CONNECTED TO ALL MONITORS, ERP AT BS. NADN/VSS.
[2021-01-14] MEDS ORDERED: LORazepam 1MG TABLET PO ONE (12:30)
[2021-01-14] MEDS ORDERED: DIVALPROEX 500 MG TABLET.DR PO ONE (12:30)
[2021-01-14] MEDS ORDERED: LEVETIRACETAM 500 MG TABLET PO ONE (12:30)
[2021-01-14] MEDS ORDERED: KETOROLAC 30 MG/1 ML IVPush ONE (12:30)
[2021-01-14] MEDS ORDERED: KETOROLAC 30 MG/1 ML ONE (12:32)
[2021-01-14] MEDS ORDERED: LEVETIRACETAM 500 MG TABLET ONE (12:32)
[2021-01-14] MEDS ORDERED: DIVALPROEX 500 MG TAB.ER.24H ONE (12:32)
[2021-01-14] MEDS ORDERED: LORazepam 1MG TABLET ONE (12:33)
[2021-01-14] MEDS ORDERED: DIVALPROEX 500 MG TABLET.DR ONE (12:41)
[2021-01-14 12:51] LABS: BASOPHILS % (AUTO) 1 % (0-1); EOSINOPHILS % (AUTO) 3 % (1-7); LYMPHOCYTES % (AUTO) 44 % (22-44); MEAN CORPUSCULAR HEMOGLOBIN 32.3 pg (27.0-34.8); MEAN CORPUSCULAR HGB CONC 34.6 g/dL (32.4-35.8); MEAN PLATELET VOLUME 8.6 fL (7.4-10.4); MONOCYTES % (AUTO) 7 % (2-9); NEUTROPHILS % (AUTO) 45 % (42-75); PLATELET COUNT 246 x10^3/uL (130-400); RED BLOOD COUNT 4.06 x10^6/uL (3.82-5.3); RED CELL DISTRIBUTION WIDTH 13.7 % (9.6-15.2)
[2021-01-14 13:00] LABS: ALANINE AMINOTRANSFERASE 14 U/L (12-78); ALBUMIN 3.5 g/dL (3.4-5.0); ANION GAP 3 mmol/L (5-15); CALCIUM 8.7 mg/dL (8.5-10.1); CHLORIDE 109 mmol/L (98-107); CREATININE 0.92 mg/dL (0.55-1.02)
[2021-01-14 13:02] LABS: ALKALINE PHOSPHATASE 58 U/L (45-117); BILIRUBIN,TOTAL 0.2 mg/dL (0.2-1.0); TOTAL PROTEIN 6.7 g/dL (6.4-8.2)
[2021-01-14 13:03] LABS: MD NO
--- NOTE | 2021-01-14 13:04 | NUR ---
PT LAYING ON GURNEY, WATCHING TV CALMLY. NADN/VSS. CALL LIGHT WITHIN REACH. SZ PRECAUTIONS IN PLACE. NO NEEDS AT THIS TIME
--- NOTE | 2021-01-14 13:09 | NUR ---
PT TO XRAY
--- NOTE | 2021-01-14 13:30 | NUR ---
PT BACK FROM RADIOLOGY. PT CONNECTED TO ALL MONITORS, CALL LIGHT WITHIN REACH
[2021-01-14 14:13] VITALS: BP 133/76
--- NOTE | 2021-01-14 14:31 | NUR ---
Patient given discharge instructions and they have confirmed that they understand the instructions. Patient ambulatory with steady gait.
== END 2021-01-14 14:32 | disposition home or self-care (01) ==
LOC: ED 12:28
DX: S16.1XXA Strain of muscle, fascia and tendon at neck level, initial encounter (principal); F14.10 Cocaine abuse, uncomplicated; Z72.9 Problem related to lifestyle, unspecified; G25.3 Myoclonus; I45.10 Unspecified right bundle-branch block; G40.909 Epilepsy, unspecified, not intractable, without status epilepticus; I10 Essential (primary) hypertension; E11.9 Type 2 diabetes mellitus without complications; K21.9 Gastro-esophageal reflux disease without esophagitis; J44.9 Chronic obstructive pulmonary disease, unspecified; Z86.73 Personal history of transient ischemic attack (TIA), and cerebral infarction without residual deficits; X58.XXXA Exposure to other specified factors, initial encounter; Y93.89 Activity, other specified; Y92.89 Other specified places as the place of occurrence of the external cause; Y99.8 Other external cause status
CPT/HCPCS: 36415; 72050; 80053; 85025; 93005; 96374; 99285; J1885

== ENCOUNTER 2021-02-16 19:23 | Emergency (ER) | payer OTHER ==
[~2021-02-16] VITALS: Ht 160 cm; Wt 68.1 kg
--- NOTE | 2021-02-16 20:33 | NUR ---
INBOUND SALES CONSULTANT: PT. TO ROOM FROM WALL WITH NYA.
[2021-02-16 20:36] VITALS: BP 147/76
[2021-02-16 21:45] LABS: BASOPHILS % (AUTO) 1 % (0-1); EOSINOPHILS % (AUTO) 2 % (1-7); LYMPHOCYTES % (AUTO) 47 % (22-44); MEAN CORPUSCULAR HEMOGLOBIN 31.9 pg (27.0-34.8); MEAN CORPUSCULAR HGB CONC 34.3 g/dL (32.4-35.8); MEAN PLATELET VOLUME 7.6 fL (7.4-10.4); MONOCYTES % (AUTO) 9 % (2-9); NEUTROPHILS % (AUTO) 41 % (42-75); PLATELET COUNT 319 x10^3/uL (130-400); RED BLOOD COUNT 4.46 x10^6/uL (3.82-5.3); RED CELL DISTRIBUTION WIDTH 13.9 % (9.6-15.2)
[2021-02-16 21:52] LABS: ALANINE AMINOTRANSFERASE 14 U/L (12-78); ALBUMIN 3.3 g/dL (3.4-5.0); ANION GAP 8 mmol/L (5-15); CALCIUM 8.8 mg/dL (8.5-10.1); CHLORIDE 106 mmol/L (98-107); CREATININE 0.91 mg/dL (0.55-1.02)
[2021-02-16 21:56] LABS: ALKALINE PHOSPHATASE 61 U/L (45-117); BILIRUBIN,TOTAL 0.3 mg/dL (0.2-1.0); TOTAL PROTEIN 7.4 g/dL (6.4-8.2); TROPONIN I < 0.015 ng/mL (0.000-0.045)
[2021-02-16 22:16] LABS: HYPOCHROMIA 1+
[2021-02-16 22:17] LABS: <PLATELET ESTIMATE> ADEQUATE; <PLT MORPHOLOGY> NORMAL PLT MORPH; MICROCYTOSIS 1+; TEAR DROPS 1+
== END 2021-02-16 22:47 | disposition home or self-care (01) ==
LOC: ED 21:33
DX: J44.9 Chronic obstructive pulmonary disease, unspecified (principal); I10 Essential (primary) hypertension; E03.9 Hypothyroidism, unspecified; K21.9 Gastro-esophageal reflux disease without esophagitis; E11.9 Type 2 diabetes mellitus without complications; I45.19 Other right bundle-branch block; F17.200 Nicotine dependence, unspecified, uncomplicated; Z86.73 Personal history of transient ischemic attack (TIA), and cerebral infarction without residual deficits; Z90.49 Acquired absence of other specified parts of digestive tract
CPT/HCPCS: 36415; 71045; 80053; 84484; 85025; 93005; 99285

== ENCOUNTER 2021-03-05 14:58 | Emergency (ER) | payer OTHER ==
[~2021-03-05] VITALS: Ht 162.6 cm; Wt 69.0 kg
[2021-03-05 15:45] LABS: BASOPHILS % (AUTO) 1 % (0-1); EOSINOPHILS % (AUTO) 2 % (1-7); LYMPHOCYTES % (AUTO) 37 % (22-44); MEAN CORPUSCULAR HEMOGLOBIN 31.7 pg (27.0-34.8); MEAN PLATELET VOLUME 7.8 fL (7.4-10.4); MONOCYTES % (AUTO) 6 % (2-9); NEUTROPHILS % (AUTO) 54 % (42-75); PLATELET COUNT 333 x10^3/uL (130-400); RED BLOOD COUNT 4.14 x10^6/uL (3.82-5.3); RED CELL DISTRIBUTION WIDTH 13.8 % (9.6-15.2)
[2021-03-05 15:57] LABS: ALANINE AMINOTRANSFERASE 15 U/L (12-78); ALBUMIN 3.2 g/dL (3.4-5.0); ANION GAP 4 mmol/L (5-15); CALCIUM 8.8 mg/dL (8.5-10.1); CHLORIDE 106 mmol/L (98-107); CREATININE 0.79 mg/dL (0.55-1.02)
[2021-03-05] MEDS ORDERED: KETOROLAC 30 MG/1 ML IVPush ONE (16:00)
[2021-03-05 16:01] LABS: ALKALINE PHOSPHATASE 66 U/L (45-117); BILIRUBIN,TOTAL 0.3 mg/dL (0.2-1.0); TOTAL PROTEIN 7.3 g/dL (6.4-8.2); TROPONIN I < 0.015 ng/mL (0.000-0.045)
[2021-03-05] MEDS ORDERED: KETOROLAC 30 MG/1 ML ONE (16:16)
--- NOTE | 2021-03-05 16:21 | NUR ---
HAT STOCK LAMINATING MACHINE OPERATOR PER MAR.
--- NOTE | 2021-03-05 16:28 | NUR ---
ALL RESULTS ARE BACK AT THIS TIME. CHART UP FOR RECHECK.
[2021-03-05 18:05] VITALS: BP 118/78
== END 2021-03-05 18:07 | disposition home or self-care (01) ==
LOC: ED 17:18
DX: J43.9 Emphysema, unspecified (principal); R07.89 Other chest pain; J02.8 Acute pharyngitis due to other specified organisms; F17.200 Nicotine dependence, unspecified, uncomplicated; R94.31 Abnormal electrocardiogram [ECG] [EKG]; B97.89 Other viral agents as the cause of diseases classified elsewhere; I10 Essential (primary) hypertension; E11.9 Type 2 diabetes mellitus without complications
CPT/HCPCS: 36415; 70360; 71045; 80053; 83880; 84484; 85025; 93005; 96374; 99285; J1885

== ENCOUNTER 2021-05-08 22:54 | Emergency (ER) | payer OTHER ==
[~2021-05-08] VITALS: Ht 162.6 cm; Wt 70.0 kg
--- NOTE | 2021-05-08 23:25 | NUR ---
ASSESSMENT MADE. SEEN BY ERP. C/O CHEST PRESSURE STARTED THIS MORNING. + NAUSEA. PAIN ON LEFT SHOULDER / ARM WITH MOVEMENT.
--- NOTE | 2021-05-08 23:48 | NUR ---
patient states pain is back and asking for pain medication.
--- NOTE | 2021-05-08 23:48 | NUR ---
patient was given 324 mg Aspirin and Nitro 0.4 mg COMMERCIAL SINGER.
--- NOTE | 2021-05-09 00:06 | NUR ---
patient watching TV. no pain medication ordered at this time.
--- NOTE | 2021-05-09 00:18 | NUR ---
blood drawn. X ray done. awaiting result.
[2021-05-09 00:27] LABS: BASOPHILS % (AUTO) 0 % (0-1); EOSINOPHILS % (AUTO) 2 % (1-7); LYMPHOCYTES % (AUTO) 41 % (22-44); MEAN CORPUSCULAR HEMOGLOBIN 32.1 pg (27.0-34.8); MEAN CORPUSCULAR HGB CONC 34.5 g/dL (32.4-35.8); MEAN PLATELET VOLUME 7.6 fL (7.4-10.4); MONOCYTES % (AUTO) 8 % (2-9); NEUTROPHILS % (AUTO) 49 % (42-75); PLATELET COUNT 310 x10^3/uL (130-400); RED BLOOD COUNT 3.89 x10^6/uL (3.82-5.3); RED CELL DISTRIBUTION WIDTH 13.4 % (9.6-15.2)
[2021-05-09 00:37] LABS: ALBUMIN 2.9 g/dL (3.4-5.0); ANION GAP 5 mmol/L (5-15); CALCIUM 8.3 mg/dL (8.5-10.1); CHLORIDE 111 mmol/L (98-107); CREATININE 0.74 mg/dL (0.55-1.02)
[2021-05-09 00:40] LABS: TROPONIN I < 0.015 ng/mL (0.000-0.045)
--- NOTE | 2021-05-09 00:40 | NUR ---
BREAK RN FOR PRIMARY RN PETRA. RECEIVED REPORT. CONTINUE AWAITING XRAY RESULTS. LABS RESULTED. VSS. SR ON MONITOR. PT REPORTS "CHEST PAIN ALMOST GONE, BARELY THERE BUT PAIN AND BURNING IN LEFT ARM IS SAME BEFORE I GOT HERE." RATES PAIN 2-3/10. DISCUSSED WITH ERP, AWARE, NO NEW ORDERS RECEIVED. MD TO RECHECK PT. CALL LIGHT IN REACH. FALL PRECAUTIONS IN PLACE. DENIES NEED TO USE RESTROOM.
--- NOTE | 2021-05-09 01:12 | NUR ---
REPORT AND TRANSFER OF CARE BACK TO PRIMARY PRINCE LAMBERT AT THIS TIME.
[2021-05-09 02:17] VITALS: BP 133/76
--- NOTE | 2021-05-09 02:17 | NUR ---
re-evaluation done. patient discharged with instruction. verbalized understanding.
== END 2021-05-09 02:19 | disposition home or self-care (01) ==
LOC: ED 23:00
DX: R07.89 Other chest pain (principal); E11.9 Type 2 diabetes mellitus without complications; K21.9 Gastro-esophageal reflux disease without esophagitis; E03.9 Hypothyroidism, unspecified; E78.5 Hyperlipidemia, unspecified; I10 Essential (primary) hypertension
CPT/HCPCS: 36415; 71045; 80048; 82040; 84484; 85025; 93005; 99285